=== PATIENT | female | born 1980 | race Caucasian/White ===

== ENCOUNTER → 2018-03-15 | Outpatient (CLI) | payer BC | END | disposition home or self-care (01) | LOC: C.PAPS 17:45 | PROVIDERS: ATTEND Obstetrics & Gynecology | DX: Z01.419 Encounter for gynecological examination (general) (routine) without abnormal findings (principal) ==

== ENCOUNTER 2018-08-12 05:14 | Observation (INO) ==
--- NOTE | 2018-07-18 12:39 | Anesthesiology Consultation ---
Date of Service July 18, 2018 Assessment & Plan (1) Encounter for pre-operative examination: Plan: CHECK TEST AM DOS Chart Review Chart Review: Acceptable Risk for Surgery and Patient seen in Pre Admission Testing Teaching & Discussion Instructed NPO after midnight before surgery, except medications with 15 cc of water. Medication instructions provided according to the PAT guidelines. History Surgery Operation Date: 08/12/18 07:30 Proposed Procedures p Robotic Total Laparoscopic Hysterectomy - Art Peoples MD, FACOG Height/Weight Height: 5 ft 3 in Weight: 69.8 kg Allergies Allergy/AdvReac Type Severity Reaction Status Date / Time No Known Allergies Allergy Verified 07/10/18 14:42 Medications Home Medications Medication Instructions Recorded Confirmed Last Taken acetaminophen [Acetaminophen Extra 1,000 mg PO QID PRN 07/10/18 07/10/18 Unknown Strength] ibuprofen 600 mg PO QID PRN 07/10/18 07/10/18 Unknown loratadine-pseudoephedrine 1 tab PO DAILY PRN 07/10/18 07/10/18 Unknown [Claritin-D 24 Hour] Past Medical History Medical History Abnormal vaginal bleeding (Acute) History of miscarriage had d/e Seasonal allergies Past Surgical History Surgical History History of hysteroscopy D+E Hx of wisdom tooth extraction Past Anesthesia History No Hx of Anesthesia Complications and No Family Hx of Anesthesia Complications History of PONV No Motion Sickness Screening History of Motion Sickness: No Social History Smoking Status: Never smoker Do You Dip or Chew Tobacco: No Hx Alcohol Use: No Hx Substance Use: No Exercise / Class Metabolic Activity II 4-5 Yardwork/Stairs/Walk up [place] Review of Systems Pt denies any recent chest pain, shortness of breath, palpitations, cough, fever or URI. Physical Exam Vital Signs BP: 105/71 P: 96bpm SPO2: 98% RA T: 99.0 F R: 12 ENMT Mouth: no dental restorations, no chipped teeth and no loose teeth Thyromental Distance: > or= 3.5 Finger Breadths (3.5) Mallampati Class: I Neck normal visual inspection; neck extension not limited Respiratory normal respiratory effort Auscultation: lungs clear to auscultation bilaterally Cardiovascular Rate/Rhythm: regular rate and regular rhythm Heart Sounds: no murmur Testing Laboratory Results 07/18/18 12:54 07/18/18 12:54 Blood Type A Positive 07/18/18 12:54 Antibody Screen NEGATIVE 07/18/18 12:54
--- NOTE | 2018-07-18 12:42 | PAT Medication Instructions ---
Medication Instructions Date of Service July 18, 2018 Home Medications acetaminophen [Acetaminophen Extra Strength] 1,000 mg PO QID PRN ibuprofen 600 mg PO QID PRN Claritin D 1 tab PO DAILY PRN ASK your surgeon for instructions ibuprofen 600 mg PO QID PRN DO NOT take the morning of surgery Claritin D 1 tab PO DAILY PRN Take morning of surgery With a small sip of water, OTHERWISE NOTHING TO EAT OR DRINK AFTER MIDNIGHT: acetaminophen [Acetaminophen Extra Strength] 1,000 mg PO QID PRN (if needed, may be taken up to four hours before surgery) Take evening before surgery acetaminophen [Acetaminophen Extra Strength] 1,000 mg PO QID PRN (if needed) Claritin D 1 tab PO DAILY PRN (if needed) Other Notes If you have any questions please call us at [phone] or [phone] or [phone] or [phone]
[2018-07-18 13:19] LABS: Basophils # (auto) 0.06 K/uL (0-0.2); Basophils % (auto) 0.9 %; Eosinophils # (auto) 0.21 K/uL (0-0.5); Eosinophils % (auto) 3.2 %; Hematocrit (blood only) 39.6 % (37-47); Hemoglobin 13.6 g/dL (12.0-16.0); Immature Granulocytes # (auto) 0.01 K/uL (0.00-0.02); Immature Granulocytes % (auto) 0.2 %; Lymphocytes % (auto) 27.6 %; Mean Corpuscular Hgb Conc 34.3 g/dL (32-36); Mean Corpuscular Volume 87.4 fL (80-100); Mean Platelet Volume 11.4 fL (7.4-10.4); Monocytes # (auto) 0.33 K/uL (0.11-0.59); Monocytes % (auto) 5.1 %; Platelet Count 189 K/uL (130-400); RDW Coefficient of Variation 12.4 % (11.5-14.5); RDW Standard Deviation 39.9 fL (36.4-46.3); Red Blood Count 4.53 M/uL (4.2-5.4); White Blood Count 6.51 K/uL (4.8-10.8)
[2018-07-18 13:27] LABS: BUN Creatinine Ratio 16.9 (10-20); Calcium 8.8 mg/dl (8.5-10.1); Creatinine Clr Calc Pharmacy 86.6 ml/min; Est GFR (African American) 102.9; Est GFR (Non-African American) 88.8; Potassium 3.6 mmol/L (3.5-5.1)
[2018-08-12] MEDS ORDERED: LR 15ML/HR IV SCH (06:00)
[2018-08-12] MEDS ORDERED: cefOXitin 2,000 MG in DEXTROSE 5% 50 ML IV SCH (06:00)
[2018-08-12 06:15] LABS: Pregnancy Test, Serum Negative (Negative)
[2018-08-12] MEDS ORDERED: GLYCOPYRROLATE 0.2 MG/ML VIAL ONE ×2 (06:56→08:33)
[2018-08-12] MEDS ORDERED: PROPOFOL IV EMULSION 10 MG/ML 20 ML VIAL IV ONE (06:56)
[2018-08-12] MEDS ORDERED: LIDOCAINE HCL 2% 2 ML VIAL/AMP(20MG/ML) INFIL ONE (06:56)
[2018-08-12] MEDS ORDERED: ONDANSETRON INJ 2 MG/ML 2 ML VIAL ONE (06:56)
[2018-08-12] MEDS ORDERED: NEOSTIGMINE METHYLSULFATE 5 MG/5 ML SYR ONE (06:56)
[2018-08-12] MEDS ORDERED: DEXAMETHASONE SOD INJ 4 MG/ML VIAL ONE (06:56)
[2018-08-12] MEDS ORDERED: fentaNYL citrate 100 MCG/2 ML VIAL ONE (06:57)
[2018-08-12] MEDS ORDERED: MIDAZOLAM HCL 1 MG/ML 2ML VIAL ONE (06:57)
--- NOTE | 2018-08-12 06:58 | History & Physical Bridge Note ---
Date of Service August 12, 2018 History & Physical Bridge Note I have examined the patient, reviewed the History & Physical and in the interval since the performance of the History & Physical I have noted the following changes of clinical significance: no changes noted
[2018-08-12] MEDS ORDERED: BUPIVACAINE 0.5 % 5 MG/1 ML MPF 30ML VIAL ONE (06:59)
[2018-08-12] MEDS ORDERED: METHYLENE BLUE 0.5% 10 ML VIAL ONE (06:59)
[2018-08-12] MEDS ORDERED: ONDANSETRON INJ 2 MG/ML 2 ML VIAL IV PRN ×2 (07:36→10:06)
[2018-08-12] MEDS ORDERED: DEXAMETHASONE SOD INJ 4 MG/ML VIAL IV PRN (07:36)
[2018-08-12] MEDS ORDERED: ePHEDrine sulfate 50 MG/ML AMP IV PRN (07:36)
[2018-08-12] MEDS ORDERED: ATROPINE SULFATE 0.1 MG/ML 10ML SYR IV PRN (07:36)
[2018-08-12] MEDS ORDERED: KETOROLAC 30 MG/ML VIAL IV PRN ×3 (07:36→20:31)
[2018-08-12] MEDS ORDERED: ePHEDrine sulfate 50 MG/ML SYR ONE (08:33)
[2018-08-12] MEDS ORDERED: HYDROmorphone INJ 2 MG/ML SYR/VIAL ONE (09:17)
[2018-08-12] MEDS ORDERED: BISACODYL 10 MG SUPP PR PRN (10:06)
[2018-08-12] MEDS ORDERED: MAGNESIUM HYDROXIDE SUSP 30 ML UDC PO PRN (10:06)
[2018-08-12] MEDS ORDERED: ZOLPIDEM TARTRATE 5 MG TAB PO PRN (10:06)
[2018-08-12] MEDS ORDERED: MEPERIDINE HCL 50 MG/ML CARP IV PRN (10:06)
[2018-08-12] MEDS ORDERED: PROMETHAZINE HCL 12.5 MG in SODIUM CHLORIDE 0.9% 50 ML IV PRN (10:06)
[2018-08-12] MEDS ORDERED: ACETAMINOPHEN 325 MG TAB PO PRN (10:06)
[2018-08-12] MEDS ORDERED: OXYCODONE/ACETAMINOPHEN 5mg/325mg TAB PO PRN (10:06)
--- NOTE | 2018-08-12 10:06 | Post Operative Brief Note ---
Immediate Post Op Note v1 Date of Surgery August 12, 2018 Pre & Post Diagnosis Operation Date: 08/12/18 07:30 <No data on this case meets the specified criteria> Procedure Operation Date: 08/12/18 07:30 <No data on this case meets the specified criteria> Surgeon Maximiliano Peoples MD, FACOG Straw Hat Machine Operator [place] Estimated Blood Loss 10 Findings Consistent with Post-Op Diagnosis
[2018-08-12] MEDS ORDERED: ESMOLOL HCL INJ 10 MG/ML 10ML VIAL IV ONE (10:32)
[2018-08-12] MEDS: fentaNYL citrate 100 MCG/2 ML VIAL IV PRN ×2 (10:35→10:43)
[2018-08-12] MEDS ORDERED: TISSEEL FIBRIN SEALANT 4ML TOP ONE (10:35)
[2018-08-12] MEDS: HYDROmorphone INJ 2 MG/ML SYR/VIAL IV PRN ×2 (10:52→11:01)
--- NOTE | 2018-08-12 11:36 | Anesthesiology Progress Note ---
Date of Service August 12, 2018 Anesthesia Post Procedure Vital Signs Vital Signs: Temp Pulse Pulse Resp BP BP Pulse Ox 08/12/18 11:20 37.1 C 89 12 112/51 L 100 08/12/18 11:10 92 H 13 110/62 99 08/12/18 11:00 88 17 106/65 100 08/12/18 10:50 85 12 115/56 L 100 08/12/18 10:40 72 12 104/62 100 08/12/18 10:30 100 H 18 108/70 100 08/12/18 10:22 36.7 C 113 H 22 119/68 100 08/12/18 05:43 37 C 85 16 103/62 98 Pain Intensity Abdomen: Pain Intensity: 4 Notes Mental Status: alert / awake / arousable and participated in evaluation Patient Amnestic to Procedure: Yes Nausea / Vomiting: adequately controlled Pain: adequately controlled Airway Patency, RR, SpO2: stable & adequate BP & HR: stable & adequate Hydration State: stable & adequate Anesthetic Complications: no major complications apparent
[2018-08-12] MEDS ORDERED: SIMETHICONE 80 MG CHEW PO PRN (12:00)
[2018-08-12] MEDS: OXYCODONE/ACETAMINOPHEN 5mg/325mg TAB PO PRN (16:51)
--- NOTE | 2018-08-12 17:31 | Operative Report ---
DATE OF OPERATION: 08/12/2018 PREOPERATIVE DIAGNOSES: Menorrhagia, pelvic pain, rectovaginal nodule. POSTOPERATIVE DIAGNOSES: Menorrhagia, pelvic pain, rectovaginal nodule, endometriosis. PROCEDURES: Da Geovanny robotically assisted total laparoscopic hysterectomy, bilateral salpingectomy, resection of endometriosis, and cystoscopy. SURGEON: Art Peoples MD. MEAT PROCESS WORKER: Kaylie. ESTIMATED BLOOD LOSS: 20 mL. SPECIMENS: Uterus, bilateral fallopian tubes, bladder flap endometriosis resection specimen, and posterior wall of uterus resection specimen. DRAINS: Hudson catheter. COMPLICATIONS: None. DISPOSITION: Recovery room. DESCRIPTION OF PROCEDURE: Patient was given a general anesthetic, prepped and draped in dorsal lithotomy position, given IV antibiotics. VCare placed into her cervix and uterus examined. It did appear to be close to the back wall of the uterus in the area of thickness, possibly a nodule, possible just thickness in the rectovaginal septum area, more on the patient's right side. Hudson catheter had been placed in her bladder. Gloves were changed. and a supraumbilical incision was made with scalpel, dissecting down. With Shaye technique, we made an entry into the abdomen. Blunt-tipped Shaye trocar was placed 1 through into the peritoneal cavity. Air was used, and the balloon was inflated to stabilize the port, and CO2 was used to inflate the abdomen. Upper abdomen normal, no sign of visceral organ injury. Deep Trendelenburg position obtained. Appendix appeared normal. There was a nodule in the anterior bladder flap region, this was somewhat thickened. There was some endometriosis in the back wall of the uterus. Both ovaries and pelvic sidewalls were normal. There was no obvious nodule in the right side of the uterosacrals, but this area was somewhat thickened. Two robotic ports, 1 in the left, 1 in the right were placed under direct visualization and a left upper quadrant 11 mm accessory port. Robot was then docked. Arm #1 was monopolar fernandez, arm #2 was a bipolar [place]. Using the V-Care to manipulate, I identified the ureter first on the left and then on the right side. It followed a normal course. We removed the fallopian tubes on each side through the accessory port and then coagulated the blood supply distal to the ovary, first on the left side with the bipolar [place] and cut this with monopolar fernandez. Same process with the round ligament on the left side, carefully dissected the bladder flap away, skeletonized the uterine vessels, and then coagulated the uterine vessels noting that we were well away from the left ureter. Vessels were then cut with monopolar fernandez. The exact same process was completed on the right side. We then made an anterior colpotomy with the monopolar fernandez, and we were able to separate the cervix from the vagina. Uterus was then pulled into the vagina to maintain pneumoperitoneum. Bladder flap area was then resected as well taking care to remove the nodule anteriorly near the bladder but not any damage to the bladder. This area was actually oversewn as reinforcement with 3-0 Vicryl simple [id number] x2. This was done later in the procedure. We inspected the nodule area, had Dr. Lott do the exam. There was not a discrete endometriosis nodule in the area. The tissue just appeared thickened along the uterosacral ligament. The rectum was not involved in this. I did not feel that resecting all this tissue would allow for a decent closure, and I felt that there were no worrisome nodules, so we decided to not pursue this further. Instruments changed are arm #1 became the luca needle truck driver flatbed, arm #2 the cobra grasper. We first closed the cuff using a 2-0, 90-day 12 inch V-Loc suture from left to right back, right to left, with at least full 1 cm thickness bites of vaginal mucosa. Suture was cut, so there was no tail. Needle removed through the accessory port. The process of reinforcing the bladder area, which was on the patient's left side, with a 3-0 Vicryl was completed by tying instrument ties on 2 separate throws of suture. It should be noted we were nowhere near the bladder mucosa, this was more external reinforcement. At this stage, after generous irrigation and suction, the patient had been given methylene blue. Tisseel was applied 4 mL for hemostasis to all of the pedicle sites. We then performed cystoscopy. Cystoscopy revealed a normal bladder, no endometriosis, no defects, and good strong jets of bluish green dye from both the left and right ureter openings. Cystoscope removed and a new Hudson catheter placed. The uterus had been removed from the vagina already. After reinspection, hemostasis was excellent. Instruments removed, robot undocked, ports removed, gas allowed to escape. Incisions all injected with 0.5% Marcaine and fascia closed in the umbilical and left upper quadrant incisions with 0 Vicryl and then 4-0 subcuticular Monocryl closures with Dermabond. Sponge and instrument counts correct at the end of the procedure. I attest to the content of the Intraoperative Record and any orders documented therein. Any exceptions are noted below. YOBANY
[2018-08-12] MEDS: IBUPROFEN 600 MG TAB PO PRN (18:27)
[2018-08-12 19:58] LABS: Hematocrit (blood only) 35.5 % (37-47); Hemoglobin 12.2 g/dL (12.0-16.0)
[2018-08-12] MEDS: DOCUSATE SODIUM 100 MG CAP PO SCH (20:37)
[2018-08-12] MEDS ORDERED: Nursing to Pharmacy Communication ONE (22:23)
[2018-08-12] MEDS ORDERED: LACTATED RINGER'S 500 ML IV SCH (22:30)
[2018-08-13 06:24] LABS: Basophils # (auto) 0.02 K/uL (0-0.2); Basophils % (auto) 0.2 %; Eosinophils # (auto) 0.03 K/uL (0-0.5); Eosinophils % (auto) 0.3 %; Hematocrit (blood only) 30.5 % (37-47); Hemoglobin 10.6 g/dL (12.0-16.0); Immature Granulocytes # (auto) 0.02 K/uL (0.00-0.02); Immature Granulocytes % (auto) 0.2 %; Lymphocytes # (auto) 1.33 K/uL (1.2-3.4); Lymphocytes % (auto) 14.3 %; Mean Corpuscular Hgb Conc 34.8 g/dL (32-36); Mean Corpuscular Volume 87.9 fL (80-100); Mean Platelet Volume 10.9 fL (7.4-10.4); Monocytes # (auto) 0.77 K/uL (0.11-0.59); Monocytes % (auto) 8.3 %; Neutrophils # (auto) 7.13 K/uL (1.4-6.5); Neutrophils % (auto) 76.7 %; Platelet Count 150 K/uL (130-400); RDW Coefficient of Variation 12.6 % (11.5-14.5); RDW Standard Deviation 40.5 fL (36.4-46.3); Red Blood Count 3.47 M/uL (4.2-5.4)
[2018-08-13] MEDS ORDERED: PHENAZOPYRIDINE HCL 200 MG TAB PO PRN (06:52)
--- NOTE | 2018-08-13 06:52 | Progress Note ---
Date of Service August 13, 2018 Postop day #1 from laparoscopic hysterectomy patient is doing well she did have some discomfort overnight and required Toradol. Currently she is better Reports no extremity pain no bleeding she is tolerating some oral diet she has excellent urine output Assessment & Plan (1) Encounter for pre-operative examination: Patient likely will meet discharge criteria later this morning I will give her some Pyridium to as she says she is voiding more frequently discharge instructions reviewed Physical Exam 2 Vital Signs (Past 24 Hours): Last Vital Signs Temp 36.6 C 08/12/18 23:45 Pulse 70 08/13/18 03:25 Resp 18 08/13/18 03:25 BP 96/61 L 08/13/18 03:25 Pulse Ox 97 08/12/18 23:45 Physical Exam: Patient appears well abdomen is soft nontender bowel sounds are positive incisions clean dry and intact extremity exam negative
[2018-08-13] MEDS ORDERED: PYRIDIUM 200MG HOME PACK PO ONE (07:30)
[2018-08-13] MEDS: IBUPROFEN 600 MG TAB PO PRN (08:30)
[2018-08-13] MEDS: OXYCODONE/ACETAMINOPHEN 5mg/325mg TAB PO PRN (08:31)
--- NOTE | 2018-08-13 08:48 | Anesthesiology Progress Note ---
Date of Service August 13, 2018 Anesthesia Post Procedure Vital Signs Vital Signs: Temp Pulse Pulse Resp BP Pulse Ox 08/13/18 03:25 70 18 96/61 L 08/12/18 23:45 36.6 C 93 H 16 98/61 L 97 08/12/18 19:45 36.3 C L 101 H 18 108/71 08/12/18 15:45 36.6 C 109 H 16 108/61 100 08/12/18 14:30 36.4 C L 110 H 18 99/64 L 100 08/12/18 13:28 90 16 101/63 100 08/12/18 12:30 98 H 16 109/69 99 08/12/18 12:05 82 18 93/56 L 95 08/12/18 11:35 36.7 C 109 H 18 97/60 L 95 08/12/18 11:20 37.1 C 89 12 112/51 L 100 08/12/18 11:10 92 H 13 110/62 99 08/12/18 11:00 88 17 106/65 100 08/12/18 10:50 85 12 115/56 L 100 08/12/18 10:40 72 12 104/62 100 08/12/18 10:30 100 H 18 108/70 100 08/12/18 10:22 36.7 C 113 H 22 119/68 100 Pain Intensity Abdomen: Pain Intensity: 7 Notes Mental Status: alert / awake / arousable Patient Amnestic to Procedure: Yes Nausea / Vomiting: adequately controlled Pain: improving with treatment Airway Patency, RR, SpO2: stable & adequate BP & HR: stable & adequate Hydration State: stable & adequate Anesthetic Complications: no major complications apparent
[2018-08-13] MEDS: DOCUSATE SODIUM 100 MG CAP PO SCH (09:27)
--- NOTE | 2018-08-19 13:09 | Discharge Summary ---
Teresa had a hysterectomy on 08/12/2018. Operative note has been dictated. The procedure was uncomplicated. By postop day #1, she met discharge criteria and was discharged home. SUBJECTIVE: The patient was ambulating, voiding well, had no extremity pain, had no vaginal bleeding, and was tolerating an oral diet and pain was controlled with oral pain medication. PHYSICAL EXAMINATION: VITAL SIGNS: Stable. She was afebrile. ABDOMEN: Soft, nontender. Incisions were clean, dry, and intact. EXTREMITIES: Negative. IMPRESSION AND PLAN: Postop day #1. Meets criteria. Discharged home. Percocet, Motrin. Discharge instructions carefully reviewed with the patient.
== END 2018-08-13 09:45 | disposition home or self-care (01) ==
LOC: 4N 05:14 → ASU 05:14